=== PATIENT | male | born 1960 | race Two or more races ===

== ENCOUNTER 2022-08-18 16:54 | Emergency (ER) | payer MEDICAID ==
[~2022-08-18] VITALS: Ht 167.6 cm; Wt 87.5 kg
[2022-08-18] MEDS ORDERED: BACDST PO (17:07)
[2022-08-18] MEDS ORDERED: CEPH500T PO (17:07)
[2022-08-18] MEDS ORDERED: MUPI2OIN2 EX (17:07)
[2022-08-18] MEDS ORDERED: CLINDAMYCIN HCL 150 MG CAP PO ONE (17:15)
[2022-08-18] MEDS ORDERED: HYDROcodone-ACET 5/325MG TAB PO ONE (17:15)
[2022-08-18 17:52] VITALS: BP 152/77
== END 2022-08-18 17:53 | disposition home or self-care (01) ==
LOC: ER 16:54
DX: L02.212 Cutaneous abscess of back [any part, except buttock and flank] (principal); L72.3 Sebaceous cyst; F17.210 Nicotine dependence, cigarettes, uncomplicated